=== PATIENT | female | born 1980 | race Caucasian/White ===

== ENCOUNTER 2018-06-07 05:39 | Day surgery (SDC) | payer MEDICARE, MEDICAID ==
[~2018-06-07] VITALS: Ht 172.7 cm; Wt 122.9 kg
--- NOTE | ~2018-06-07 | OP ---
PATIENT NAME: SHREYA PENNINGTON MEDICAL RECORD: [id number] LOCATION:[facility] ADMISSION DATE: SURGEON: BECKI ABEL DO DATE OF OPERATION: 06/07/2018 PROCEDURE PERFORMED: Right de Quervain release or first dorsal compartment release of the right wrist. PREOPERATIVE DIAGNOSIS: Right de Quervain tenosynovitis or radial styloid tenosynovitis. POSTOPERATIVE DIAGNOSIS: Right de Quervain tenosynovitis or radial styloid tenosynovitis. INDICATIONS: Ms. Pennington is a 38-year-old female, who has been dealing with this pain for quite some time with any kind of wrist ulnar deviation. She is tired of dealing with it and wanted something done surgically. I offered injections and she said she had it in the past and they did not work. Upon hearing this, she requested that surgery be done. She is aware of the risks and benefits of the procedure including damage to the radial sensory nerve, the infection, bleeding, and damage to other nerves and vessels. She was okay with the risks and consented to the procedure. SURGEON: Becki Abel DO DESCRIPTION OF PROCEDURE: The patient was taken to the operative suite, laid in supine position. Right upper extremity was prepped and draped in sterile fashion with a tourniquet above the elbow under the drapes. Once was prepped and draped, a time-out was performed and everyone was in agreement with the correct side, site, patient, and procedure. The patient was given 2 grams of Ancef preoperatively. The incision was then marked out and then the right upper extremity was exsanguinated and tourniquet was inflated to 250 mmHg, it was up for 11 minutes during the procedure. Then, the Esmarch was unwrapped and the incision began with 15 blade scalpel right over the first dorsal compartment. Careful dissection was made down to the first dorsal compartment and a very thick sheath was noted at the first dorsal compartment and this was released on the dorsal side as dorsal as possible and tendons were inspected for extra slips, none were seen. They were taken out of the wound and again no extra slips were seen and a 5-0 Monocryl with a single stitch was put in to loosely close down having extra space into the sheath itself. This reapproximated, really not even sutured down. Once this was done, 10 mL of 0.25% Marcaine with epinephrine was injected around the site and the tourniquet was let down at 11 minutes. There was minimal bleeding. The incision site was then closed with 5-0 Monocryl first in an inverted interrupted and then ran on the skin and steri-Strips were placed over that. Adaptic, 4 x 4's, Kerlix, and Coban were lightly wrapped on the wrist. The patient was awakened and taken to recovery in stable condition. BLOOD LOSS: Minimal. COMPLICATIONS: None. TRANSINT:[id number] Voice Confirmation ID: [id number] DOCUMENT ID: [id number] OPERATIVE REPORT [id number] SHREYA PENNINGTON MICHAEL D, DO at 1241 CC: [id number] DICTATION DATE: 06/07/18814 RIVET MACHINE OPERATOR: 06/07/1809 [facility] 06/07/[address] [id number]
[~2018-06-07 05:39] MED LIST: BREVICON PO; CALAN SR120 MG PO; CARAFATE1 G PO; CYCLOBENZAPRINE10 MG PO; FLOVENT HFA 11012 GM INH; FLUTICASONE PRO16 GM NASAL; GLYCOLAX527 GM PO; LO LOESTRIN TAB 1-1; NAPROSYN500 MG PO; NORCO 10-325 TA1 TAB PO; OMEPRAZOLE20 M1 PO; PEPCID40 MG PO; PRAVASTATIN SOD10 MG PO; PRILOSEC20 MG PO; PROCTOFOAM-HC 110 GM RC; STOOL SOFTENER100 MG PO; VENTOLIN HFA AER; [UNRECOGNIZED DRUG - OTHER]
[2018-06-07 06:03] LABS: HEMATOCRIT 40.4 % (36.0-48.0); MCH 31.2 pg (26.0-34.0); MCHC 34.7 g/dL (31.0-37.0); MEAN PLATELET VOLUME 10.7 fL (7.4-10.4); RBC 4.49 10x6/uL (4.00-5.40); RDW 12.7 % (11.5-14.5); WBC 8.8 10x3/uL (4.8-10.8)
[2018-06-07 06:25] VITALS: BP 114/65; Ht 172.7 cm; Wt 122.9 kg
[2018-06-07 06:35] LABS: HCG URINE NEGATIVE (NEGATIVE)
[2018-06-07] MEDS ORDERED: OXYCODONE-APAP1 TAB PO (08:09)
[2018-06-07] MEDS ORDERED: DURICEF500 MG PO (08:09)
[2018-06-13] MEDS ORDERED: VENTOLIN HFA18 GM INH (10:35)
[2018-06-13] MEDS ORDERED: PROBIOTIC1 EAC1 PO (10:36)
[2018-06-13] MEDS ORDERED: LIDOCA (10:38)
[2018-06-13] MEDS ORDERED: METRONIDAZOLE (10:38)
== END 2018-06-07 11:51 | disposition home or self-care (01) ==
LOC: D.OPS 05:39 → D.PAN 14:30 → D.OPS 14:30
PROVIDERS: Anesthesiology; Orthopaedic Surgery
DX: M65.4 Radial styloid tenosynovitis [de Quervain] (principal); Z01.812 Encounter for preprocedural laboratory examination

== ENCOUNTER 2018-06-15 05:00 | Day surgery (SDC) | payer MEDICARE, MEDICAID ==
[2018-06-13 11:04] LABS: HEMATOCRIT 39.4 % (36.0-48.0); HEMOGLOBIN 13.6 g/dL (12-16); MCH 30.9 pg (26.0-34.0); MCHC 34.5 g/dL (31.0-37.0); MCV 89.5 fL (80.0-100.0); MEAN PLATELET VOLUME 10.4 fL (7.4-10.4); RBC 4.4 10x6/uL (4.00-5.40); RDW 12.9 % (11.5-14.5); WBC 6.4 10x3/uL (4.8-10.8)
[~2018-06-15] VITALS: Ht 172.7 cm; Wt 122.5 kg
[~2018-06-15 05:00] MED LIST changes: +DURICEF500 MG PO; +LIDOCA; +METRONIDAZOLE; +OXYCODONE-APAP1 TAB PO; +PROBIOTIC1 EAC1 PO; +VENTOLIN HFA18 GM INH
[2018-06-15 06:32] LABS: HCG URINE NEGATIVE (NEGATIVE)
[2018-06-15 06:46] VITALS: BP 131/78; Ht 172.7 cm; Wt 122.5 kg
[2018-06-15] MEDS ORDERED: VALIUM5 MG PO (08:31)
[2018-06-15] MEDS ORDERED: PERCOCET 5-3251 TAB PO (08:31)
== END 2018-06-15 13:20 | disposition home or self-care (01) ==
LOC: D.OPS 05:00 → D.PAN 09:15 → D.OPS 09:15
PROVIDERS: Anesthesiology; Surgery
DX: K64.5 Perianal venous thrombosis (principal); K64.8 Other hemorrhoids; K64.4 Residual hemorrhoidal skin tags